=== PATIENT | male | born 1985 | race Caucasian/White ===

== ENCOUNTER 2017-01-09 15:51 | Emergency (ER) | payer MEDICAID ==
[~2017-01-09] VITALS: Ht 177.8 cm; Wt 81.5 kg
[2017-01-09 15:53] VITALS: Ht 177.8 cm; Wt 81.5 kg
[2017-01-09] MEDS ORDERED: KETOROLAC 30 MG INJ IM STA (17:01)
[2017-01-09] MEDS ORDERED: LORAZEPAM 0.5 MG TAB PO ONE (17:30)
[2017-01-09] MEDS ORDERED: IBUP-1542 PO (17:40)
[2017-01-09] MEDS ORDERED: LORA-441 PO (17:40)
[2017-01-09 18:00] VITALS: BP 142/81; PULSE 87; RESP 16; TEMP 98.9
--- NOTE | 2017-01-09 20:07 | ERD ---
ER Documentation Chief Complaint Date/Time DATE: 01/09/17 TIME: 20:03 Chief Complaint HEADACHE, SORETHROAT, WEAKNESS, MAILAISE, CP X1 MONTH. WORSE THIS WEEK. HPI 31-year-old man with multiple complaints including left-sided paresthesias 1-2 months, generalized weakness, intermittent headache and body aches. Upon further questioning he also states he feels anxious and probably has a long history of anxiety although denies taking medications for anxiety. He denies suicidal homicidal ideation. He has had no slurred speech, no motor deficits in upper or lower extremities, no trauma, no fevers or chills, no weight loss. He denies using any medications for his symptoms but states he did see his PMD last week and his PMD tashi blood work the results of which are pending. He has a scheduled appointment with his PMD early next week ROS All systems reviewed and are negative except as per history of present illness. Medications Home Meds Active Scripts Ibuprofen* (Motrin*) 600 Mg Tab, 600 MG PO Q8 for PAIN AND/OR INFLAMMATION, #30 TAB Prov:ANA LUNA MD 01/09/17 Lorazepam* (Ativan*) 0.5 Mg Tablet, 0.5 MG PO Q8H Y for ANXIETY, #12 TAB Prov:ANA LUNA MD 01/09/17 Allergies Allergies: Coded Allergies: No Known Allergy (Unverified , 01/09/17) PMhx/Soc Possibly anxiety Hx Alcohol Use: No Hx Substance Use: No Hx Tobacco Use: No Smoking Status: Unknown if ever smoked FmHx Family History: No diabetes Physical Exam Vitals Vital Signs Date Time Temp Pulse Resp B/P Pulse Ox O2 Delivery O2 Flow Rate FiO2 01/09/17 18:00 98.9 87 16 142/81 99 01/09/17 15:53 98.9 71 16 142/81 99 Physical Exam GENERAL: Well-developed, well-nourished, appears anxious HEENT: Moist mucous membranes, pink conjunctiva, no cervical spine tenderness or step-off deformities, no goiter, no jaundice or icterus, extraocular movements intact without pain. No submandibular induration, and no pharyngeal erythema NEURO: Alert and oriented 3, cranial nerves II through XII intact bilaterally, pupils equal round reactive to light, no focal deficits or facial asymmetry, sensation intact distally Strength 5/5 in upper and lower extremities bilaterally CARDIAC: Regular rate and rhythm, no murmurs rubs or gallops LUNGS: Clear bilaterally no wheezing crackles or stridor ABDOMEN: Soft nontender, no guarding, no rigidity, no rebound, no psoas sign no obturator sign. Normoactive bowel sounds SKIN: Warm and dry to touch, no abrasions, contusions, or hematomas, no lacerations, no ecchymosis, no target lesions, and without ulcers EXTREMITIES: No clubbing cyanosis or edema, calves are bilaterally symmetrical, no Homans sign, no popliteal cord sign. Distal pulses equal and bilateral PSYCH: Anxious Results 24 hrs Current Medications Medications (Trade) Dose Ordered Sig/Rashida Route PRN Reason Start Time Stop Time Status Last Admin Dose Admin Ketorolac Tromethamine (Toradol) 30 mg ONCE STAT IM 01/09/17 17:01 01/09/17 17:02 DC 01/09/17 17:24 Lorazepam (Ativan) 0.5 mg ONCE ONCE PO 01/09/17 17:30 01/09/17 17:31 DC 01/09/17 17:23 Procedures/MDM I administered Toradol 30 mg intramuscular injection and lorazepam 0.5 mg p.o. for his symptoms. EKG was performed, read by me revealed a sinus bradycardia 54 bpm, right axis deviation and a right bundle branch block with a QRS duration of 124 ms, no concerning ST elevations or depressions noted. Reassurance was provided to the patient, he does have the PMD he follows up with and it seems his PMD as began evaluating his symptoms as an outpatient. Given the patient's paresthesias which have been ongoing I recommended outpatient MRI brain although I will defer this to his PMD. Differential diagnoses considered, included but not limited to acute coronary syndrome, pulmonary embolism, aortic dissection, abdominal aortic aneurysm, sepsis, stroke, meningitis, encephalitis, pneumonia, appendicitis, cholecystitis , bowel obstruction, pyelonephritis, nephrolithiasis, cystitis, as well as metabolic, hematologic, and electrolyte abnormalities. As well as abscess, cellulitis, fractures, and dislocations. Patient feels much better at this time, and vital signs are normal, symptoms have improved. I did give strict instructions to return to the ED if symptoms continue or worsen, patient will otherwise follow-up with primary care physician. Patient understood instructions and agreed to plan. Departure Diagnosis: Primary Impression: Anxiety Additional Impressions: Chest pain Chest pain type: unspecified Qualified Code: R07.9 - Chest pain, unspecified type Paresthesias Condition: Good Patient Instructions: Anxiety Reaction, Chest Pain, Uncertain Cause ANA LUNA MD Jan 09, 2017 20:07
== END 2017-01-09 18:00 | disposition home or self-care (01) ==
LOC: FTE 15:51
DX: F41.9 Anxiety disorder, unspecified (principal); R07.9 Chest pain, unspecified; R20.9 Unspecified disturbances of skin sensation
CPT/HCPCS: 96372; J1885; Z7502; Z7610; 93005